=== PATIENT | female | born 1940 | race African-American/Black ===

== ENCOUNTER 2017-12-27 10:17 | Inpatient (IN) | payer MEDICAID, MEDICARE ==
[2017-12-27] MEDS ORDERED: methylPREDNISolone 125 MG* 2 ML VIAL IV ONE (10:19)
[2017-12-27] MEDS ORDERED: Albuterol/Ipratropium NEB.SOL* Albuterol 2.5 MG/Ipratropium 0.5 MG 3 ML INH ONE (10:19)
[2017-12-27] MEDS ORDERED: Albuterol 2.5 MG/3 ML NEB.SOL* (0.083%) INH ONE (10:20)
[2017-12-27] MEDS ORDERED: Albuterol 2.5 MG/3 ML NEB.SOL* (0.083%) ONE (10:21)
--- NOTE | 2017-12-27 11:14 | RAD ---
INDICATION: Shortness of breath. COMPARISON: There are no prior studies available for comparison. TECHNIQUE: A portable view of the chest was obtained. FINDINGS: The heart is within normal limits in size. The lungs are hyperinflated and grossly clear. No pleural effusion is seen. IMPRESSION: NO EVIDENCE FOR ACUTE FINDING.
[2017-12-27 11:55] LABS: EGFR Non-African American 71.2 (>60)
[2017-12-27 12:00] LABS: Urine Appearance Clear; Urine Blood Negative (Negative); Urine Color Yellow; Urine Ketones Negative (Negative); Urine Protein Negative (Negative); Urine Specific Gravity 1.008 (1.010-1.030); Urine Urobilinogen Negative (Negative)
[2017-12-27 12:28] LABS: ABS Basophils 0 10^3/ul (0-0.2); ABS Eosinophils 0 10^3/ul (0-0.6); ABS Lymphocytes 0.3 10^3/ul (1.0-4.8); ABS Monocytes 0.4 10^3/ul (0-0.8); ABS Neutrophils 10.7 10^3/ul (1.5-7.7); ABS Nucleated RBC 0 10^3/ul; Eosinophil % 0.3 % (0-6); Hematocrit 35 % (35-47); Hemoglobin 11.1 g/dl (12.0-16.0); Lymphocyte % 2.9 % (25-47); Mean Corpuscular HGB Conc 32 g/dl (31-36); Mean Corpuscular Hemoglobin 25 pg (27-31); Mean Corpuscular Volume 80 fL (80-97); Mean Platelet Volume 6.7 um3 (7.4-10.4); Nucleated Red Blood Cells % 0; Platelet Count 261 10^3/ul (150-450); Red Cell Distribution Width 18 % (10.5-15); White Blood Count 11.5 10^3/ul (3.5-10.8)
[2017-12-27] MEDS ORDERED: Albuterol/Ipratropium NEB.SOL* Albuterol 2.5 MG/Ipratropium 0.5 MG 3 ML INH PRN (13:32)
[2017-12-27] MEDS ORDERED: Albuterol HFA INHALER* 8 gm MDI INH PRN (13:35)
[2017-12-27] MEDS ORDERED: NS 0.9% 1000 ML* 1,000 ML IV SCH (13:45)
[2017-12-27] MEDS: Heparin VIAL(*) 5000 UNITS/ML VIAL (FIVE THOUSAND) SUBCUT SCH ×2 (14:45→20:42)
[2017-12-27] MEDS ORDERED: Albuterol 2.5 MG/3 ML NEB.SOL* (0.083%) INH PRN (16:40)
[2017-12-27] MEDS ORDERED: Albuterol/Ipratropium NEB.SOL* Albuterol 2.5 MG/Ipratropium 0.5 MG 3 ML INH SCH (17:00)
[2017-12-27] MEDS: methylPREDNISolone SOD 40 MG* 1 ML VIAL IV SCH (18:11)
[2017-12-27] MEDS ORDERED: Albuterol 2.5 MG/3 ML NEB.SOL* (0.083%) INH SCH (19:00)
[2017-12-27] MEDS: Albuterol/Ipratropium NEB.SOL* Albuterol 2.5 MG/Ipratropium 0.5 MG 3 ML INH SCH (19:29)
--- NOTE | 2017-12-27 20:31 | HP ---
CC: Dr. Faria; Dr. Lind * HISTORY AND PHYSICAL: DATE OF ADMISSION: 12/27/17 PRIMARY CARE PROVIDER: Dr. Faria from [facility]. CHIEF COMPLAINT: Shortness of breath and wheezing. HISTORY OF PRESENT ILLNESS: Michael Sanon is a 77-year-old female with history of oxygen-dependent COPD who moved in from [place] to live with her son in [place], [place], last fall. For the past 6 months as per the patient's son, she had been hospitalized almost every 2 weeks at a hospital in [place]. In fact , she was there just a week ago. She was treated for COPD exacerbation with antibiotics and prednisone. At that point, she was recommended to see a mounter sousaphones, Dr. Lind, who is affiliated with out [facility]. The patient stated that she started wheezing again after a brief period of improvement after hospital stay. At that point, the son decided to drive her to our hospital since a mounter sousaphones is in this hospital available. The patient stated that she is not really more short of breath but she had been wheezing more. She had been using nebulizers on an as needed basis. She denies any fevers and she had been having occasional sputum production. Her weight has been unchanged. The patient is going to be placed on observation with the diagnosis of COPD exacerbation. PAST MEDICAL HISTORY: 1. History of COPD, oxygen dependent at 2 L for the past 8 years. The patient denies any surgical interventions in the past. She has no history of heart disease or diabetes. 2. The patient has history of umbilical hernia that "never bothered her." CURRENT MEDICATIONS: At home include: 1. [place]-3 fatty acids at 1000 mg daily. 2. Singulair 10 mg daily. 3. Lisinopril 10 mg daily. 4. Mucinex 600 mg b.i.d. 5. Gabapentin 600 mg at bedtime. 6. Fluticasone nasal spray 1 puff inhalation daily. 7. Ferrous sulfate 325 mg b.i.d. 8. BuSpar 10 mg at bedtime. 9. Ascorbic acid 500 mg daily. 10. DuoNeb 1 nebulizer every 6 hours p.r.n. 11. Albuterol inhaler on p.r.n. basis. ALLERGIES: Include OXYCODONE and PENICILLIN with unknown reaction. Simply the patient does not remember. FAMILY HISTORY: Both parents in their 60s and 70s from a cancer, the patient does not know which cancer. SOCIAL HISTORY: The patient has history of [id number] smoking. She quit smoking 8 years ago. She denies any alcohol or drug use. She is currently retired, lives with her son who is her surrogate. Her son's name is Denny Sanon. REVIEW OF SYSTEMS: Please see history of present illness. All the remaining 12 systems were reviewed with the patient who is rather a poor historian with the help of her son, who is present in the room and were otherwise negative. PHYSICAL EXAMINATION GENERAL: The patient is a very pleasant 77-year-old female, who is in no acute distress; alert, awake, and oriented x3. Rather poor historian. VITAL SIGNS: Blood pressure of 153/66, heart rate of 111 and regular, respiratory rate 20, oxygen saturation 100% on 2 L of oxygen via nasal canula, temperature 98.3. HEENT: Head atraumatic, normocephalic. Eyes, pupils are equal, reactive to light and accommodation. Oropharynx clear. Mucosa moist. Dentition absent. NECK: Supple. No JVD. No bruits bilaterally. RESPIRATORY: Diffuse wheezes in bilateral mid lungs. CARDIOVASCULAR: Regular rate and rhythm. No murmur. ABDOMEN: Soft, nontender. Bowel sounds present in all 4 quadrants. EXTREMITIES: There is no edema. Pulses are +2 bilaterally. No clubbing or cyanosis. NEUROLOGIC: Speech clear. Cranial nerves II through XII grossly intact. Motor strength is 5/5 bilaterally. SKIN: No ecchymotic areas or rashes noted. PSYCHIATRIC: The patient is a rather poor historian but pleasant and cooperative with evaluation with no evidence of anxiety or depression. DIAGNOSTIC STUDIES/LAB DATA: Laboratory data showed white blood cell count of 11.5, hemoglobin of 11.1, hematocrit 35, and platelets 261,000. The patient's MCV was 80. ABG on current oxygen source; pH is 7.43, PCO2 of 48, PO2 of 64, and bicarb of 30. Sodium is 143, potassium 4.1, chloride 103, carbon dioxide 35, BUN 8, creatinine 0.7. Liver function tests unremarkable. C-reactive protein of 77. Procalcitonin 0.1. Urinalysis positive for +3 esterase, but absent bacteria. Portable chest x-ray. Impression: "No evidence of acute finding." The patient's EKG showed sinus tachycardia with no ST changes. ASSESSMENT AND PLAN: 1. The patient appears to be a rather compensated severe chronic obstructive pulmonary disease. Her oxygen saturation is 97% to 100% on 2 L of oxygen via nasal cannula which is her baseline. She is wheezing and she is improved with nebulizer treatments in the hospital. She may be a candidate for chronic prednisone use. At this point, I will observe her on medical floor and ask Dr. Lind to see the patient in consult. I will place her on Solu-Medrol intravenously and continue her nebulizer treatments. 2. The patient has chronic hypoxemic respiratory failure which appears to be at baseline according to the patient's ABG. 3. For DVT prophylaxis, the patient is going to be placed on heparin subcutaneously. 4. The patient's code status is full and that was confirmed by the patient's son who is her surrogate. TIME SPENT: Approximately 35 minutes were spent on the admission of this patient, more than half that time was spent [id number] with the patient during the interview and physical exam. [id number]/[facility] #: [id number] MTDD
[2017-12-27] MEDS: Gabapentin CAP(*) 300 MG PO SCH (20:38)
[2017-12-27] MEDS: Montelukast Sodium TAB* 10 MG PO SCH (20:40)
[2017-12-27] MEDS: Ferrous Sulfate TAB* 325 MG PO SCH (20:40)
[2017-12-27] MEDS: busPIRone TAB* 10 MG PO SCH (20:41)
[2017-12-27] MEDS: guaiFENesin ER TAB 600 MG PO SCH (20:41)
[2017-12-27] MEDS: Acetaminophen TAB* 325 MG PO PRN (22:42)
[2017-12-28] MEDS: Albuterol/Ipratropium NEB.SOL* Albuterol 2.5 MG/Ipratropium 0.5 MG 3 ML INH SCH ×5 (01:53→19:28)
[2017-12-28] MEDS: methylPREDNISolone SOD 40 MG* 1 ML VIAL IV SCH ×3 (02:31→17:57)
[2017-12-28] MEDS: Heparin VIAL(*) 5000 UNITS/ML VIAL (FIVE THOUSAND) SUBCUT SCH ×3 (05:15→22:01)
--- NOTE | 2017-12-28 05:46 | CONS ---
PULMONARY CONSULTATION REPORT: DATE OF CONSULTATION: 12/27/17 - ROOM #ICU-07 CONSULTATION REQUESTED BY: Estelita Kaplan MD REASON FOR CONSULTATION: Evaluation of COPD. HISTORY OF PRESENT ILLNESS: The patient is a 77-year-old female, former smoker , quit 8 years ago with history of asthma/COPD, and history of recurrent COPD exacerbation. The presents for evaluation of worsening shortness of breath, wheezing for the past 1 day. The patient denies sick contacts recently. The patient reports chronic shortness of breath and intermittent cough. The patient reports worsening shortness of breath and wheezing since yesterday. She used her nebulizers without improvement in her symptoms. She was evaluated by home health aide and was recommended to be taken to the emergency room. The patient has a slipcover cutter in [place], was hospitalized in the past in [place]. The patient decided to come in here at this time. The patient has significant COPD, has been on O2 supplementation on 2 L at home. The patient reports improvement in symptoms with nebulizer; however, shortness of breath comes back again. The patient was found to be tachycardic and tachypneic in the ED. She was needing O2 at baseline, has not required increased O2 supplementation. The patient received nebulizers and steroids in the ED. She was admitted for management of COPD exacerbation. The patient is seen and examined at bedside. The patient reports slight improvement in shortness of breath. The patient reports stable cough. The patient denies fevers or chills at home. The patient denies chest pain, palpitations, dizziness, loss of weight or appetite. The patient is tachypneic while talking. She has mild use of accessory muscles of respiration. The patient does not have elevated JVD. The patient had further evaluation in the emergency room, which included blood gas and CT of the chest. I have personally reviewed the lab results and also reviewed the chest x-ray personally. Chest x-ray showed evidence of hyperinflation. Costophrenic angles are short. Evidence of possible pulmonary hypertension. No suspicious air space opacities were noted. The patient was noted to have slightly elevated white count with neutrophilia. The patient noted to have compensated respiratory acidosis with evidence of metabolic alkalosis. Lactic acid was within normal limits. CRP is mildly elevated. BNP is within normal limits. Procalcitonin is within normal limits. The patient was initiated on bronchodilators, Solu-Medrol. PAST MEDICAL HISTORY: 1. COPD/asthma. 2. Recurrent bronchitis. 3. Chronic pain. 4. Hypertension. 5. Allergies. PAST SURGICAL HISTORY: Reviewed. ALLERGIES: OXYCODONE, PENICILLINS. FAMILY HISTORY: Reviewed and noncontributory to current complaint. SOCIAL HISTORY: Former smoker, quit smoking 8 years ago, denies alcohol or drug abuse. PHYSICAL EXAM: The patient in bed, in no apparent distress. Vital Signs: Temperature 98.2, pulse 108 beats per minute, respiratory rate 23 per minute, O2 sat 100% on 3 L, blood pressure of 140/63. HEENT: Pupils are equal and reactive to light. Mucous membranes are moist. Lungs: Diminished air entry bilaterally, scattered wheeze on auscultation. Cardiovascular: S1, S2 present and regular. No murmurs, gallops, or rubs. Abdomen: Soft, nontender, and nondistended. Bowel sounds are present. Extremities: Normal range of motion. Skin: No rashes or bruise. Neuro: No focal deficits. DIAGNOSTIC STUDIES/LAB DATA: WBC count 11.5, hemoglobin 11.1, hematocrit 35, platelet count 261,000. Blood gas analysis shows pH 7.43, pCO2 of 48, pO2 of 64 , bicarb 30, O2 sat 96.9. Sodium 143, potassium 4.1, chloride 103, bicarb 35, BUN 8, creatinine 0.78. Lactic acid is within normal limits. UA showed 3+ leukocyte esterase, 2+ wbc's. Chest x-ray as described above in the HPI. IMPRESSION AND RECOMMENDATIONS: 77-year-old female, former smoker with history of chronic obstructive pulmonary disease, being followed by slipcover cutter at the outside facility, admitted with worsening shortness of breath, wheezing, being treated for acute chronic obstructive pulmonary disease exacerbation. The patient reports improvement in symptoms. The patient reports recurrent symptoms recently, reports allergies are being stable. Reports significantly decreased exercise tolerance at baseline. Has been compliant with O2 as prescribed. No evidence of heart failure at this time. Agree with current management for chronic obstructive pulmonary disease exacerbation with steroids and bronchodilators. The patient does have positive UA, might benefit from antibiotics given the elevated white count. She will benefit from pulmonary rehab as outpatient and chronic prednisone therapy given recurrent exacerbation. Thank you for allowing me to participate in the care of your patient. Will follow up with you. [id number]/[facility] #: [id number] ESTEFANIA
[2017-12-28] MEDS ORDERED: LORazepam INJ* 2 MG/ML 1 ML VIAL IV PUSH ONE (06:29)
--- NOTE | 2017-12-28 06:37 | PN ---
Hospitalist Progress Note Date of Service: 12/28/17 Called to bedside at 610 this am for complaints of sob and increased work of breathing. Pt noted to have wheezing bilaterally. And noted to be diaphoretic. Neb helped somewhat however given WOB will transfer to [facility] for vapotherm possibly bipap. Will give .25 mg ativan. family updated. EKg and cxr ordered
[2017-12-28 06:46] LABS: ABS Basophils 0 10^3/ul (0-0.2); ABS Eosinophils 0 10^3/ul (0-0.6); ABS Lymphocytes 0.4 10^3/ul (1.0-4.8); ABS Monocytes 0.1 10^3/ul (0-0.8); ABS Neutrophils 4.7 10^3/ul (1.5-7.7); ABS Nucleated RBC 0 10^3/ul; Eosinophil % 0 % (0-6); Hematocrit 37 % (35-47); Mean Corpuscular HGB Conc 33 g/dl (31-36); Mean Corpuscular Hemoglobin 26 pg (27-31); Mean Corpuscular Volume 80 fL (80-97); Mean Platelet Volume 7.4 um3 (7.4-10.4); Nucleated Red Blood Cells % 0.1; Platelet Count 314 10^3/ul (150-450); Red Blood Count 4.59 10^6/ul (4.0-5.4); Red Cell Distribution Width 18 % (10.5-15); White Blood Count 5.1 10^3/ul (3.5-10.8)
[2017-12-28] MEDS ORDERED: Furosemide IV* 10 MG/ML 2 ML VIAL (20 MG) IV ONE (06:47)
[2017-12-28] MEDS ORDERED: Furosemide IV* 10 MG/ML 2 ML VIAL (20 MG) ONE (06:54)
[2017-12-28 07:08] LABS: EGFR Non-African American 67.2 (>60)
--- NOTE | 2017-12-28 08:38 | RAD ---
Indication: Shortness of breath. COPD on home oxygen. Cardiovascular disease. Clinical COPD exacerbation. Comparison: December 27, 2017 Technique: Upright AP 0703 hours Report: Elevated lung volumes and both diffuse mild prominence of the interstitial markings and patchy rarefaction of the mid to upper lung zone interstitial markings. Mild alveolar consolidation at the peripheral RIGHT lung base. Given absence of volume loss to favor atelectasis this may represent inflammatory infiltrate. Small RIGHT pleural effusion not excluded. Linear atelectasis at the LEFT mid lung zone is chronic. Negative for pneumothorax. Negative for cardiomegaly. Prominent central pulmonary vasculature with peripheral attenuation. Mildly tortuous thoracic aorta. IMPRESSION: 1. Suggestion of acute inflammatory infiltrate at the RIGHT lung base with potential small pleural effusion. 2. Stigmata of advanced COPD with probable pulmonary arterial hypertension.
[2017-12-28] MEDS: Lisinopril TAB* 10 MG PO SCH (09:01)
[2017-12-28] MEDS: Ferrous Sulfate TAB* 325 MG PO SCH ×2 (09:01→19:49)
[2017-12-28] MEDS: guaiFENesin ER TAB 600 MG PO SCH ×2 (09:01→19:52)
--- NOTE | 2017-12-28 12:14 | PN ---
Progress Note - Progress Note Date of Service: 12/28/17 Note: CRITICAL CARE MEDICINE Date: 12/28/17 Time: 1100 SUBJECTIVE: Patient seen and examined. family at bedside. PHYSICAL EXAM: elderly, frail Vital Signs: Reviewed. Neurologic: awakens, but weak overall, can be appropriate but sleepy HEENT: pupils equal. Sclera anicteric. Trachea midline. Cardiovascular: distant, S1 S2 Respiratory: distant, rate in 20s but tolerable propably towards baseline rate; Abdomen: Soft, nt. Extremities: Warm. mild dep edema Access: piv LABS: Reviewed. IMAGING: Reviewed. MEDICATIONS: Reviewed. ASSESSMENT/PLAN: 77 F Acute on chronic hypoxic and hypercarbic resp failure COPD exacerbation D/w family. pt actually handles fairly well at home with good support, but lungs have been dismal for long time and on home O2. More exacerbations lately. No new burden other then exacerbation it seems at this time. Pulm eval and following. Can wean back off HFO2. [place] will remain poor. Copd adjunctives. Wean O2, steroids. May need flow today. Benefit from nocturnal ventilation? Pt, social work as needed Afeb, wbc dissipated; ua without bact, +sq, asym, can hold off on abx for now Supportive and preventative care as ordered. Disposition: ICU today Code Status: Full presently Critical Care Time: 30min FSamira Jalloh DO
--- NOTE | 2017-12-28 16:23 | PN ---
Progress Note - Progress Note Date of Service: 12/28/17 - Pulm f/u note Note: Pt seen and examined at bedside. Pt reports improvement in breathing. was transferred to ICU this morning, was placed on high flow O2 Active Medications Generic Name Dose Route Start Last Admin Trade Name Aury PRN Reason Stop Dose Admin Acetaminophen 650 mg 12/21/17 09:33 12/27/17 01:47 Tylenol Tab* PO 650 mg Q6H PRN Administration pain/fever Heparin Sodium/Dextrose 25,000 units in 500 mls @ 0 mls/hr 12/27/17 15:00 16:09 Heparin Drip 25,000 Units(*) IV 23 mls/hr PER RATE SHANNEN Administration Protocol Per Protocol Pantoprazole Sodium 80 mg/ 250 mls @ 25 mls/hr 12/27/17 19:00 12/28/17 07:02 Sodium Chloride IVPB 25 mls/hr Q10H SHANNEN Administration Protocol Melatonin 3 mg 12/24/17 01:25 12/26/17 22:22 Melatonin (Nf) PO 3 mg BEDTIME PRN Administration Sleep Protocol Multivitamins/Minerals 1 cap 12/22/17 09:00 12/28/17 09:27 Preservision Areds 2 PO 1 cap BID SHANNEN Administration Potassium Chloride 10 meq 12/25/17 09:00 12/28/17 09:27 Klor Con Er Tab* PO 10 meq DAILY SHANNEN Administration Prochlorperazine Edisylate 5 mg 12/22/17 00:27 12/22/17 00:39 Compazine Inj* IV 5 mg Q6H PRN Administration NAUSEA/VOMITING Sucralfate 1 gm 12/26/17 09:00 12/28/17 12:52 Carafate* PO 1 gm QID SHANNEN Administration Vital Signs Temp Pulse Resp BP Pulse Ox 98 F 79 12 140/78 96 12/28/17 11:40 12/28/17 15:00 12/28/17 15:00 12/28/17 15:00 12/28/17 15:00 O/E: Pt in NAD HEENT: PERRLA, no JVD Lungs: diminished air entry b/l CVS: S1, S2+ Abd: Soft, BS+ Ext: No edema Skin: No rash or bruise Neuro: No focal defecitis Laboratory Results - last 24 hr 12/27/17 12/27/17 12/27/17 05:07 15:54 15:54 WBC RBC Hgb Hct MCV MCH MCHC RDW Plt Count MPV Neut % (Auto) Lymph % (Auto) [place] % (Auto) Eos % (Auto) Baso % (Auto) Absolute Neuts (auto) Absolute Lymphs (auto) Absolute Monos (auto) Absolute Eos (auto) Absolute Basos (auto) Absolute Nucleated RBC Nucleated RBC % APTT 30.7 BUN 14 Creatinine 0.75 Est GFR ( Amer) 94.5 Est GFR (Non-Af Amer) 73.4 Blood Type A Negative Antibody Screen Negative Crossmatch See Detail 12/27/17 12/28/17 12/28/17 23:15 06:30 06:30 WBC 8.3 RBC 3.30 L Hgb 9.9 L Hct 29 L MCV 88 MCH 30 MCHC 34 RDW 16 H Plt Count 209 MPV 7.1 L Neut % (Auto) 78.8 Lymph % (Auto) 10.6 L [place] % (Auto) 8.1 H Eos % (Auto) 1.9 Baso % (Auto) 0.6 Absolute Neuts (auto) 6.6 Absolute Lymphs (auto) 0.9 L Absolute Monos (auto) 0.7 Absolute Eos (auto) 0.2 Absolute Basos (auto) 0.1 Absolute Nucleated RBC 0 Nucleated RBC % 0.1 APTT 102.9 H* 84.2 H BUN Creatinine Est GFR ( Amer) Est GFR (Non-Af Amer) Blood Type Antibody Screen Crossmatch 12/28/17 12/28/17 06:30 14:40 WBC RBC Hgb Hct MCV MCH MCHC RDW Plt Count MPV Neut % (Auto) Lymph % (Auto) [place] % (Auto) Eos % (Auto) Baso % (Auto) Absolute Neuts (auto) Absolute Lymphs (auto) Absolute Monos (auto) Absolute Eos (auto) Absolute Basos (auto) Absolute Nucleated RBC Nucleated RBC % APTT 81.7 H BUN Creatinine 0.64 Est GFR ( Amer) 113.4 Est GFR (Non-Af Amer) 88.2 Blood Type Antibody Screen Crossmatch I/R: 83 y o f former smoker with O2 dependant COPD, recurrent admissions recently a/w worsening SOB, being treated for acute COPD exacerbation Pt has chronic hypercapnic and hypoxic resp failure Given recent recurrent exacerbations and chronic hypercapnia, would benefit from NIPPV Will try BiPAP tonight Will d/c home on BiPAP if able to tolerate Titrate FiO2 as tolerated c/w bronchodilators Will start prednisone taper starting tomorrow Family at bedside, pt and family updated of plan D/w Dr Jalloh
[2017-12-28] MEDS ORDERED: LORazepam INJ* 2 MG/ML 1 ML VIAL ONE (19:46)
[2017-12-28] MEDS: LORazepam INJ* 2 MG/ML 1 ML VIAL IV PRN (19:48)
[2017-12-28] MEDS: busPIRone TAB* 10 MG PO SCH (19:49)
[2017-12-28] MEDS: Gabapentin CAP(*) 300 MG PO SCH (19:49)
[2017-12-28] MEDS: Montelukast Sodium TAB* 10 MG PO SCH (19:49)
[2017-12-29] MEDS: Albuterol/Ipratropium NEB.SOL* Albuterol 2.5 MG/Ipratropium 0.5 MG 3 ML INH SCH ×4 (01:29→19:46)
[2017-12-29] MEDS: Heparin VIAL(*) 5000 UNITS/ML VIAL (FIVE THOUSAND) SUBCUT SCH ×3 (05:23→22:43)
[2017-12-29] MEDS: guaiFENesin ER TAB 600 MG PO SCH ×2 (08:48→19:43)
[2017-12-29] MEDS: Ferrous Sulfate TAB* 325 MG PO SCH ×2 (08:48→19:41)
[2017-12-29] MEDS: Lisinopril TAB* 10 MG PO SCH (08:48)
[2017-12-29] MEDS: predniSONE TAB* 20 MG PO SCH (08:48)
--- NOTE | 2017-12-29 11:15 | PN ---
Progress Note - Progress Note Date of Service: 12/29/17 Note: CRITICAL CARE MEDICINE Date: 12/29/17 Time: 1015 SUBJECTIVE: Patient seen and examined. son at bedside. PHYSICAL EXAM: Vital Signs: Reviewed. Neurologic: more appropriate and communicating HEENT: pupils equal. Sclera anicteric. Trachea midline. Cardiovascular: distant, S1 S2 Respiratory: better rate and phases. more comfortable. distant Abdomen: Soft, nt. Extremities: Warm. mild dep edema Access: piv LABS: Reviewed. IMAGING: Reviewed. MEDICATIONS: Reviewed. ASSESSMENT/PLAN: 77 F Acute on chronic hypoxic and hypercarbic resp failure COPD exacerbation Did well with bipap overnight. will continue nocturnal and see about outpt needs. on 10 L [place] and can keep weaning towards home O2. Pulm f/u Son and family with understanding of her chronic nature and use of bipap benefits Copd adjunctives. Wean steroids. Pt, social work as needed Supportive and preventative care as ordered. Disposition: ok for floor Code Status: Full presently Critical Care Time: 25min FSamira Jalloh DO
[2017-12-29] MEDS: LORazepam INJ* 2 MG/ML 1 ML VIAL IV PRN (12:14)
[2017-12-29] MEDS ORDERED: methylPREDNISolone SOD 40 MG* 1 ML VIAL IV STA (17:01)
--- NOTE | 2017-12-29 17:07 | PN ---
Progress Note - Progress Note Date of Service: 12/29/17 - Pulm f/u note Note: Pt seen and examined at bedside. Pt reports feeling better. Reports having tolerated BiPAP well last night, slept better. Denies cough, chest pain, urinary complaints Active Medications Generic Name Dose Route Start Last Admin Trade Name Freq PRN Reason Stop Dose Admin Acetaminophen 650 mg 12/27/17 13:32 12/27/17 22:42 Tylenol Tab* PO 650 mg Q4H PRN Administration FEVER/PAIN Albuterol 2 puff 12/27/17 13:35 12/28/17 20:59 Ventolin Hfa Inhaler* INH 2 puff Q2H PRN Administration SOB/WHEEZING Albuterol 2.5 mg 12/27/17 16:40 Ventolin 2.5 Mg/3 Ml Neb.Agueda* INH Q2H PRN SOB/WHEEZING Albuterol/Ipratropium 1 neb 12/27/17 19:00 12/29/17 11:57 Duoneb (Albuterol 2.5 Mg/Ipratropium 0.5 Mg) INH 1 neb 0100,0700,1300,1900 SHANNEN Administration Buspirone HCl 10 mg 12/27/17 21:00 12/28/17 19:49 Buspar Tab* PO 10 mg BEDTIME SHANNEN Administration Ferrous Sulfate 325 mg 12/27/17 21:00 12/29/17 08:48 Ferrous Sulfate Tab* PO 325 mg BID SHANNEN Administration Gabapentin 600 mg 12/27/17 21:00 12/28/17 19:49 Neurontin Cap(*) PO 600 mg BEDTIME SHANNEN Administration Guaifenesin 600 mg 12/27/17 21:00 12/29/17 08:48 Mucinex* PO 600 mg BID SHANNEN Administration Heparin Sodium (Porcine) 5,000 units 12/27/17 14:00 12/29/17 16:01 Heparin Vial(*) SUBCUT 5,000 units Q8HR SHANNEN Administration Lisinopril 10 mg 12/28/17 09:00 12/29/17 08:48 Prinivil Tab* PO 10 mg DAILY SHANNEN Administration Lorazepam 0.25 mg 12/28/17 19:43 12/29/17 12:14 Ativan Inj* IV 0.25 mg Q6H PRN Administration ANXIETY Methylprednisolone Sodium Succinate 40 mg 12/29/17 17:01 Solu-Medrol 40 Mg IV 12/29/17 17:02 DAILY STA Montelukast Sodium 10 mg 12/27/17 21:00 12/28/17 19:49 Singulair Tab* PO 10 mg BEDTIME SHANNEN Administration Prednisone 20 mg 12/29/17 09:00 12/29/17 08:48 Deltasone Tab* PO 20 mg DAILY SHANNEN Administration Vital Signs Temp Pulse Resp BP Pulse Ox 98.1 F 98 22 130/66 100 12/29/17 15:50 12/29/17 15:50 12/29/17 15:50 12/29/17 15:50 12/29/17 15:50 O/E: Pt in NAD, siting up in chair HEENT: PERRLA, No JVD Lungs: Expiratory wheeze and prolonged exhalation CVS: S1, S2+, regular Abd: Soft, BS+ Ext: No edema, normal ROM Neuro: No focal defecits Skin: No rash Laboratory Results 12/27/17 12/27/17 12/27/17 05:07 15:54 15:54 WBC RBC Hgb Hct MCV MCH MCHC RDW Plt Count MPV Neut % (Auto) Lymph % (Auto) [place] % (Auto) Eos % (Auto) Baso % (Auto) Absolute Neuts (auto) Absolute Lymphs (auto) Absolute Monos (auto) Absolute Eos (auto) Absolute Basos (auto) Absolute Nucleated RBC Nucleated RBC % APTT 30.7 BUN 14 Creatinine 0.75 Est GFR ( Amer) 94.5 Est GFR (Non-Af Amer) 73.4 Blood Type A Negative Antibody Screen Negative Crossmatch See Detail 12/27/17 12/28/17 12/28/17 23:15 06:30 06:30 WBC 8.3 RBC 3.30 L Hgb 9.9 L Hct 29 L MCV 88 MCH 30 MCHC 34 RDW 16 H Plt Count 209 MPV 7.1 L Neut % (Auto) 78.8 Lymph % (Auto) 10.6 L [place] % (Auto) 8.1 H Eos % (Auto) 1.9 Baso % (Auto) 0.6 Absolute Neuts (auto) 6.6 Absolute Lymphs (auto) 0.9 L Absolute Monos (auto) 0.7 Absolute Eos (auto) 0.2 Absolute Basos (auto) 0.1 Absolute Nucleated RBC 0 Nucleated RBC % 0.1 APTT 102.9 H* 84.2 H BUN Creatinine Est GFR ( Amer) Est GFR (Non-Af Amer) Blood Type Antibody Screen Crossmatch 12/28/17 12/28/17 06:30 14:40 WBC RBC Hgb Hct MCV MCH MCHC RDW Plt Count MPV Neut % (Auto) Lymph % (Auto) [place] % (Auto) Eos % (Auto) Baso % (Auto) Absolute Neuts (auto) Absolute Lymphs (auto) Absolute Monos (auto) Absolute Eos (auto) Absolute Basos (auto) Absolute Nucleated RBC Nucleated RBC % APTT 81.7 H BUN Creatinine 0.64 Est GFR ( Amer) 113.4 Est GFR (Non-Af Amer) 88.2 Blood Type Antibody Screen Crossmatch I/R: 83 y o f former smoker with O2 dependant COPD, recurrent admissions recently a/w worsening SOB, being treated for acute COPD exacerbation Pt has chronic hypercapnic and hypoxic resp failure Given recent recurrent exacerbations and chronic hypercapnia, NIPPV was initiated which she tolerated well c/w BiPAP at night Will d/c home on BiPAP Titrate FiO2 as tolerated Was slightly more wheezy and rhonchorus today Steroids tapered to 20mg daily Will given additional 40mg today c/w bronchodilators Will benefit from pulm rehab as out pt
[2017-12-29] MEDS: busPIRone TAB* 10 MG PO SCH (19:41)
[2017-12-29] MEDS: Gabapentin CAP(*) 300 MG PO SCH (19:42)
[2017-12-29] MEDS: Montelukast Sodium TAB* 10 MG PO SCH (19:43)
--- NOTE | 2017-12-29 21:21 | ED ---
Tin Bah Angela, scribed for Anderson Avila MD on 12/27/17 at 1030 . Shortness of Breath - HPI Summary HPI Summary: This pt is a 77 y/o female presenting to [facility] via EMS for difficulty breathing today. Pt reports she has had increased shortness of breath. She describes wheezing and cough. Denies chest pain, fever. Per nurse's note, pt had duo neb x3 at home with no relief. Pt is a former smoker (quit 8 years ago). She has hx of COPD. - History of Current Complaint Time Seen by Provider: 12/27/17 10:19 Hx Obtained From: Patient Onset/Duration: Gradual Onset, Still Present Timing: Constant Current Severity: Moderate Dyspnea At: Rest Aggrevating Factors: Nothing Alleviating Factors: Nothing Associated Signs & Symptoms: Cough (Nonproductive), Wheezing - Allergy/Home Medications Allergies/Adverse Reactions: Allergies Allergy/AdvReac Type Severity Reaction Status Date / Time oxycodone [From OxyContin] Allergy See Comment Verified 12/27/17 11:46 Penicillins Allergy Rash Verified 12/27/17 11:46 Home Medications: Home Medications Albuterol 2.5MG/3ML (0.083%)* [Ventolin 2.5 MG/3 ML NEB.KRUPA*] 2.5 mg INH Q6H PRN 12/27/17 [History Confirmed 12/27/17] Albuterol HFA INHALER* [Ventolin HFA Inhaler*] 1 - 2 puff INH Q2H PRN 12/27/17 [ History Confirmed 12/27/17] Albuterol/Ipratropium NEB.KRUPA* [Duoneb (Albuterol 2.5 MG/Ipratropium 0.5 MG)] 1 neb INH QID 12/27/17 [History Confirmed 12/27/17] Ascorbic Acid TAB* [Vitamin C TAB*] 500 mg PO DAILY 12/27/17 [History Confirmed 12/27/17] Ferrous Sulfate TAB* 325 mg PO BID 12/27/17 [History Confirmed 12/27/17] Fluticasone HFA 220 mcg(NF) [Flovent HFA 220 Mcg(NF)] 1 puff INH BID 12/27/17 [ History Confirmed 12/27/17] Gabapentin CAP(*) [Neurontin 300 CAP(*)] 600 mg PO BEDTIME 12/27/17 [History Confirmed 12/27/17] Lisinopril TAB* [Prinivil TAB*] 10 mg PO DAILY 12/27/17 [History Confirmed 12/27] Montelukast Sodium TAB* [Singulair TAB*] 10 mg PO BEDTIME 12/27/17 [History Confirmed 12/27/17] [place]-3 Fatty Acids (Nf) [Fish Oil (NF)] 1,000 mg PO DAILY 12/27/17 [History Confirmed 12/27/17] busPIRone TAB* [Buspar TAB*] 10 mg PO BEDTIME 12/27/17 [History Confirmed ] guaiFENesin ER TAB [Mucinex*] 600 mg PO BID 12/27/17 [History Confirmed 12/27/17 ] PMH/Surg Hx/FS Hx/Imm Hx Endocrine/Hematology History: Denies: Hx Diabetes Respiratory History: Reports: Hx Chronic Obstructive Pulmonary Disease (COPD) Infectious Disease History: No Infectious Disease History: Denies: Traveled Outside the [place] in Last 30 Days - Family History Known Family History: Negative: Cardiac Disease, Hypertension - Social History Alcohol Use: None Substance Use Type: Reports: None Smoking Status (MU): Former Smoker Review of Systems Negative: Fever ENT: Negative Negative: Chest Pain Positive: Shortness Of Breath, Cough Genitourinary: Negative Skin: Negative Neurological: Negative All Other Systems Reviewed And Are Negative: Yes Physical Exam - Summary Physical Exam Summary: VITAL SIGNS: Reviewed. GENERAL: Patient is a well-developed and nourished female who is lying comfortable in the stretcher. HEAD AND FACE: No signs of trauma. No ecchymosis, hematomas or skull depressions. No sinus tenderness. EYES: PERRLA, EOMI x 2, No injected conjunctiva, no nystagmus. EARS: Hearing grossly intact. Ear canals and tympanic membranes are within normal limits. MOUTH: Oropharynx within normal limits. Dry mouth. NECK: Supple, trachea is midline, no adenopathy, no JVD, no carotid bruit, no c- spine tenderness, neck with full ROM. CHEST: Symmetric, no tenderness at palpation LUNGS: Decreased breath sounds bilaterally and wheezing. Crackles in both bases of the lungs. CVS: Regular rate and rhythm, S1 and S2 present, no murmurs or gallops appreciated. ABDOMEN: Soft, non-tender. No signs of distention. No rebound no guarding, and no masses palpated. Bowel sounds are normal. EXTREMITIES: FROM in all major joints, no edema, no cyanosis or clubbing. NEURO: Alert and oriented x 3. No acute neurological deficits. Speech is normal and follows commands. SKIN: Dry and warm Triage Information Reviewed: Yes Vital Signs On Initial Exam: Initial Vitals Temp Pulse Resp BP Pulse Ox 98.3 F 112 28 153/66 96 12/27/17 10:19 12/27/17 10:19 12/27/17 10:19 12/27/17 10:19 12/27/17 10:19 Vital Signs Reviewed: Yes Diagnostics - Vital Signs Vital Signs Temp Pulse Resp BP Pulse Ox 12/27/17 10:19 98.3 F 112 28 153/66 96 - Laboratory Result Diagrams: 12/27/17 11:04 12/27/17 11:04 Lab Statement: Any lab studies that have been ordered have been reviewed, and results considered in the medical decision making process. - Radiology Chest XR Xray Interpretation: No Acute Changes - IMPRESSION: No evidence for acute finding. Dr. Avila has reviewed this radiology report. Radiology Interpretation Completed By: Radiologist - EKG 10:44 Cardiac Rate: Tachycardia - at 106 bpm EKG Rhythm: Sinus Tachycardia EKG Interpretation: No ST elevations. Course/Dx - Course Assessment/Plan: Pt is a 77 y/o female presenting to [facility] via EMS for difficulty breathing today. Pt reports she has had increased shortness of breath. She describes wheezing and cough. Denies chest pain, fever. Per nurse' s note, pt had duo neb x3 at home with no relief. Pt is a former smoker (quit 8 years ago). She has hx of COPD. Test results show WBC of 11.5 with 93% neutrophils but no bands, CRP of 77.3. Urinalysis is contaminated therefore we will send urine cultures. ABG with pH of 7.4, pCO2 of 48, pO2 of 64, O2 saturation is 96, elevated base excess. Chest XR: No evidence for acute finding. The pt was given an additional duoneb since she had already taken 3 but she is still wheezing. She was given solu-Medrol. When I removed the oxygen from the pt she desaturates to 90%, however with 3L of oxygen her saturation is 96-98%. I re-examined the pt and she is still wheezing with decreased breath sounds. Therefore I discussed the case with Dr. Kaplan, hospitalist, who accepted the pt for admission. Pt is hemodynamically stable, alert and oriented x3. - Diagnoses Provider Diagnoses: COPD exacerbation - Physician Notifications Discussed Care of Patient With: Estelita Kaplan Time Discussed With Above Provider: 12:50 Instructed by Provider To: Other - I discussed pt care with Dr. Kaplan, hospitalist, who has agreed to admit the pt. Discharge - Sign-Out/Discharge Documenting (check all that apply): Discharge/Admit/Transfer - Admit - Discharge Plan Condition: Stable Disposition: ADMITTED TO [facility] Referrals: David Faria MD [Primary Care Provider] - The documentation as recorded by the Tin perea Angela accurately reflects the service I personally performed and the decisions made by me, Anderson Avila MD.
[2017-12-30] MEDS: Albuterol/Ipratropium NEB.SOL* Albuterol 2.5 MG/Ipratropium 0.5 MG 3 ML INH SCH ×4 (03:02→19:49)
[2017-12-30] MEDS: Heparin VIAL(*) 5000 UNITS/ML VIAL (FIVE THOUSAND) SUBCUT SCH ×3 (05:54→20:42)
[2017-12-30] MEDS: LORazepam INJ* 2 MG/ML 1 ML VIAL IV PRN ×2 (09:18→15:57)
[2017-12-30] MEDS: Lisinopril TAB* 10 MG PO SCH (09:21)
[2017-12-30] MEDS: Ferrous Sulfate TAB* 325 MG PO SCH ×2 (09:21→20:09)
[2017-12-30] MEDS: predniSONE TAB* 20 MG PO SCH (09:22)
[2017-12-30] MEDS: guaiFENesin ER TAB 600 MG PO SCH ×2 (09:22→20:10)
[2017-12-30] MEDS: Acetaminophen TAB* 325 MG PO PRN (16:02)
--- NOTE | 2017-12-30 18:13 | PN ---
Subjective Date of Service: 12/30/17 Interval History: Pt is feeling well. She denies any SOB or sputum production. She states she walked to the bathroom twice today without much difficulty. Objective Active Medications: Acetaminophen (Tylenol Tab*) 650 mg PO Q4H PRN PRN Reason: FEVER/PAIN Last Admin: 12/30/17 16:02 Dose: 650 mg Albuterol (Ventolin Hfa Inhaler*) 2 puff INH Q2H PRN PRN Reason: SOB/WHEEZING Last Admin: 12/28/17 20:59 Dose: 2 puff Albuterol (Ventolin 2.5 Mg/3 Ml Neb.Agueda*) 2.5 mg INH Q2H PRN PRN Reason: SOB/WHEEZING Albuterol/Ipratropium (Duoneb (Albuterol 2.5 Mg/Ipratropium 0.5 Mg)) 1 neb INH 0100,0700,1300,1900 [facility] Last Admin: 12/30/17 13:06 Dose: 1 neb Buspirone HCl (Buspar Tab*) 10 mg PO BEDTIME [facility] Last Admin: 12/29/17 19:41 Dose: 10 mg Ferrous Sulfate (Ferrous Sulfate Tab*) 325 mg PO BID [facility] Last Admin: 12/30/17 09:21 Dose: 325 mg Gabapentin (Neurontin Cap(*)) 600 mg PO BEDTIME [facility] Last Admin: 12/29/17 19:42 Dose: 600 mg Guaifenesin (Mucinex*) 600 mg PO BID [facility] Last Admin: 12/30/17 09:22 Dose: 600 mg Heparin Sodium (Porcine) (Heparin Vial(*)) 5,000 units SUBCUT Q8HR [facility] Last Admin: 12/30/17 13:28 Dose: 5,000 units Lisinopril (Prinivil Tab*) 10 mg PO DAILY [facility] Last Admin: 12/30/17 09:21 Dose: 10 mg Lorazepam (Ativan Inj*) 0.25 mg IV Q6H PRN PRN Reason: ANXIETY Last Admin: 12/30/17 15:57 Dose: 0.25 mg Montelukast Sodium (Singulair Tab*) 10 mg PO BEDTIME [facility] Last Admin: 12/29/17 19:43 Dose: 10 mg Prednisone (Deltasone Tab*) 20 mg PO DAILY [facility] Last Admin: 12/30/17 09:22 Dose: 20 mg Vital Signs - 8 hr 12/30/17 12/30/17 12/30/17 10:52 11:40 13:07 Temperature 98.2 F Pulse Rate 48 93 Respiratory 24 22 20 Rate Blood Pressure 142/66 (mmHg) O2 Sat by Pulse 91 99 Oximetry 12/30/17 12/30/17 12/30/17 13:34 15:04 15:57 Temperature 98.1 F Pulse Rate 92 97 Respiratory 18 20 Rate Blood Pressure 143/64 (mmHg) O2 Sat by Pulse 99 Oximetry Oxygen Devices in Use Now: Nasal Cannula Appearance: Elderly cachectic female sitting up in a recliner chair, NAD Eyes: No Scleral Icterus Ears/Nose/Mouth/Throat: Mucous Membranes Moist Respiratory: Symmetrical Chest Expansion and Respiratory Effort - diminshed breath sounds in all lung myers, Clear to Auscultation Cardiovascular: RRR, No Edema Abdominal: NL Sounds; No Tenderness; No Distention Extremities: No Clubbing, Cyanosis Skin: No Nodules or Sclerosis Neurological: Alert and Oriented x 3 Result Diagrams: 12/28/17 06:29 12/28/17 06:29 Assess/Plan/Problems-Billing Ms Sanon is a 77 yo F who has a h/o O2 dependent COPD, HTN and anxiety who presented to the ER with c/o SOB and was admitted for a COPD exacerbation. - Patient Problems (1) COPD exacerbation Current Visit: Yes Status: Acute Code(s): J44.1 - CHRONIC OBSTRUCTIVE PULMONARY DISEASE W (ACUTE) EXACERBATION SNOMED Code(s): 251465211 Comment: Sputum grew H parainfluenzae. Will continue prednisone for COPD exacerbation. She appears stable today. Will try to get the patient up walking more tomorrow and if stable she may be able to be discharged home. (2) HTN (hypertension) Current Visit: Yes Status: Acute Code(s): I10 - ESSENTIAL (PRIMARY) HYPERTENSION SNOMED Code(s): 62184827 Comment: BP is under good control. Continue lisinopril 10mg daily. (3) Anxiety Current Visit: Yes Status: Acute Code(s): F41.9 - ANXIETY DISORDER, UNSPECIFIED SNOMED Code(s): 97614483 Comment: Continue buspar and prn ativan. (4) DVT prophylaxis Current Visit: Yes Status: Acute Code(s): IBO2816 - SNOMED Code(s): 216760339 Comment: SQ heparin (5) Full code status Current Visit: Yes Status: Acute Code(s): Z78.9 - OTHER SPECIFIED HEALTH STATUS SNOMED Code(s): 418666845
[2017-12-30] MEDS: Gabapentin CAP(*) 300 MG PO SCH (20:09)
[2017-12-30] MEDS: busPIRone TAB* 10 MG PO SCH (20:10)
[2017-12-30] MEDS: Montelukast Sodium TAB* 10 MG PO SCH (20:41)
[2017-12-31] MEDS: Albuterol/Ipratropium NEB.SOL* Albuterol 2.5 MG/Ipratropium 0.5 MG 3 ML INH SCH ×4 (01:48→19:55)
[2017-12-31] MEDS: Heparin VIAL(*) 5000 UNITS/ML VIAL (FIVE THOUSAND) SUBCUT SCH ×3 (05:44→21:19)
[2017-12-31] MEDS: guaiFENesin ER TAB 600 MG PO SCH ×2 (07:38→21:21)
[2017-12-31] MEDS: predniSONE TAB* 20 MG PO SCH (07:38)
[2017-12-31] MEDS: Ferrous Sulfate TAB* 325 MG PO SCH ×2 (07:38→21:19)
[2017-12-31] MEDS: Lisinopril TAB* 10 MG PO SCH (07:38)
[2017-12-31] MEDS: LORazepam TAB(*) 0.5 MG PO PRN ×2 (10:15→16:15)
--- NOTE | 2017-12-31 18:14 | PN ---
Subjective Date of Service: 12/31/17 Interval History: Patient feels OK. Sleeping in chair, which she does at home. She states she can walk to bathroom w/ walker, but nurse states she is a 1-person assist, pivots to commode. Denies chest pain, SOB, cough. Has home O2 but not BiPAP. Family History: Unchanged from Admission Social History: Unchanged from Admission Past Medical History: Unchanged from Admission Objective Active Medications: Acetaminophen (Tylenol Tab*) 650 mg PO Q4H PRN PRN Reason: FEVER/PAIN Last Admin: 12/30/17 16:02 Dose: 650 mg Albuterol (Ventolin Hfa Inhaler*) 2 puff INH Q2H PRN PRN Reason: SOB/WHEEZING Last Admin: 12/28/17 20:59 Dose: 2 puff Albuterol (Ventolin 2.5 Mg/3 Ml Neb.Agueda*) 2.5 mg INH Q2H PRN PRN Reason: SOB/WHEEZING Albuterol/Ipratropium (Duoneb (Albuterol 2.5 Mg/Ipratropium 0.5 Mg)) 1 neb INH 0100,0700,1300,1900 [facility] Last Admin: 12/31/17 13:50 Dose: 1 neb Buspirone HCl (Buspar Tab*) 10 mg PO BEDTIME [facility] Last Admin: 12/30/17 20:10 Dose: 10 mg Ferrous Sulfate (Ferrous Sulfate Tab*) 325 mg PO BID [facility] Last Admin: 12/31/17 07:38 Dose: 325 mg Gabapentin (Neurontin Cap(*)) 600 mg PO BEDTIME [facility] Last Admin: 12/30/17 20:09 Dose: 600 mg Guaifenesin (Mucinex*) 600 mg PO BID [facility] Last Admin: 12/31/17 07:38 Dose: 600 mg Heparin Sodium (Porcine) (Heparin Vial(*)) 5,000 units SUBCUT Q8HR [facility] Last Admin: 12/31/17 13:17 Dose: 5,000 units Lisinopril (Prinivil Tab*) 10 mg PO DAILY [facility] Last Admin: 12/31/17 07:38 Dose: 10 mg Lorazepam (Ativan Tab(*)) 0.5 mg PO Q6H PRN PRN Reason: ANXIETY Last Admin: 12/31/17 16:15 Dose: 0.5 mg Montelukast Sodium (Singulair Tab*) 10 mg PO BEDTIME [facility] Last Admin: 12/30/17 20:41 Dose: 10 mg Prednisone (Deltasone Tab*) 20 mg PO DAILY [facility] Last Admin: 12/31/17 07:38 Dose: 20 mg Vital Signs - 8 hr 12/31/17 12/31/17 12/31/17 13:55 15:40 15:42 Temperature 36.9 C 36.9 C Pulse Rate 99 78 98 Respiratory 16 18 20 Rate Blood Pressure 126/64 133/68 (mmHg) O2 Sat by Pulse 96 94 98 Oximetry Oxygen Devices in Use Now: Nasal Cannula Appearance: elderly woman, NAD Eyes: No Scleral Icterus Ears/Nose/Mouth/Throat: - - almost edentuless Neck: NL Appearance and Movements; NL JVP Respiratory: Clear to Auscultation, - - diminished throughout Cardiovascular: NL Sounds; No Murmurs; No JVD, RRR Abdominal: NL Sounds; No Tenderness; No Distention Extremities: No Edema Neurological: Alert and Oriented x 3 Lines/Tubes/Other Access: Clean, Dry and Intact Peripheral IV Nutrition: Taking PO's Result Diagrams: 12/28/17 06:29 12/28/17 06:29 Assess/Plan/Problems-Billing Ms Sanon is a 77 yo F who has a h/o O2 dependent COPD, HTN and anxiety who presented to the ER with c/o SOB and was admitted for a COPD exacerbation. - Patient Problems (1) COPD exacerbation Current Visit: Yes Status: Acute Priority: High Code(s): J44.1 - CHRONIC OBSTRUCTIVE PULMONARY DISEASE W (ACUTE) EXACERBATION SNOMED Code(s): 979039349 Comment: -Sputum grew H parainfluenzae, will treat w/ doxycycline -Will continue prednisone for COPD exacerbation. (2) Chronic respiratory failure Current Visit: Yes Status: Acute Priority: High Code(s): J96.10 - CHRONIC RESPIRATORY FAILURE, UNSP W HYPOXIA OR HYPERCAPNIA SNOMED Code(s): 45788475 Comment: -Dr. Lind's note appreciated -Can be discharged home once BiPAP set up for nighttime use -continue O2 supplemental (3) DVT prophylaxis Current Visit: Yes Status: Acute Priority: Low Code(s): VCC2615 - SNOMED Code(s): 388026863 Comment: -SQ heparin Status and Disposition: inpatient, discharge tomorrow in BiPAP set up at home
[2017-12-31] MEDS: Acetaminophen TAB* 325 MG PO PRN (18:27)
[2017-12-31] MEDS: DOXYcycline CAP(*) 100 MG PO SCH (21:19)
[2017-12-31] MEDS: Montelukast Sodium TAB* 10 MG PO SCH (21:20)
[2017-12-31] MEDS: Gabapentin CAP(*) 300 MG PO SCH (21:20)
[2017-12-31] MEDS: busPIRone TAB* 10 MG PO SCH (21:21)
[2018-01-01] MEDS: LORazepam TAB(*) 0.5 MG PO PRN ×3 (00:32→18:03)
[2018-01-01] MEDS: Albuterol/Ipratropium NEB.SOL* Albuterol 2.5 MG/Ipratropium 0.5 MG 3 ML INH SCH ×4 (00:42→19:56)
[2018-01-01] MEDS: Heparin VIAL(*) 5000 UNITS/ML VIAL (FIVE THOUSAND) SUBCUT SCH ×3 (05:55→20:59)
[2018-01-01] MEDS: Ferrous Sulfate TAB* 325 MG PO SCH ×2 (07:11→20:50)
[2018-01-01] MEDS: DOXYcycline CAP(*) 100 MG PO SCH ×2 (07:12→20:49)
[2018-01-01] MEDS: predniSONE TAB* 20 MG PO SCH (07:12)
[2018-01-01] MEDS: Lisinopril TAB* 10 MG PO SCH (07:12)
[2018-01-01] MEDS: guaiFENesin ER TAB 600 MG PO SCH ×2 (07:12→20:49)
--- NOTE | 2018-01-01 12:34 | PN ---
Subjective Date of Service: 01/01/18 Interval History: Patient feels stronger than yesterday. She tolerates BiPAP overnight, says it helps w/ breathing. Has home o2 but BiPAP is new to her. Can walk to BR w/ walker. Family History: Unchanged from Admission Social History: Unchanged from Admission Past Medical History: Unchanged from Admission Objective Active Medications: Acetaminophen (Tylenol Tab*) 650 mg PO Q4H PRN PRN Reason: FEVER/PAIN Last Admin: 12/31/17 18:27 Dose: 650 mg Albuterol (Ventolin Hfa Inhaler*) 2 puff INH Q2H PRN PRN Reason: SOB/WHEEZING Last Admin: 12/28/17 20:59 Dose: 2 puff Albuterol (Ventolin 2.5 Mg/3 Ml Neb.Agueda*) 2.5 mg INH Q2H PRN PRN Reason: SOB/WHEEZING Albuterol/Ipratropium (Duoneb (Albuterol 2.5 Mg/Ipratropium 0.5 Mg)) 1 neb INH 0100,0700,1300,1900 [facility] Last Admin: 01/01/18 07:14 Dose: 1 neb Buspirone HCl (Buspar Tab*) 10 mg PO BEDTIME [facility] Last Admin: 12/31/17 21:21 Dose: 10 mg Doxycycline Hyclate (Vibramycin Cap(*)) 100 mg PO BID [facility] Last Admin: 01/01/18 07:12 Dose: 100 mg Ferrous Sulfate (Ferrous Sulfate Tab*) 325 mg PO BID [facility] Last Admin: 01/01/18 07:11 Dose: 325 mg Gabapentin (Neurontin Cap(*)) 600 mg PO BEDTIME [facility] Last Admin: 12/31/17 21:20 Dose: 600 mg Guaifenesin (Mucinex*) 600 mg PO BID [facility] Last Admin: 01/01/18 07:12 Dose: 600 mg Heparin Sodium (Porcine) (Heparin Vial(*)) 5,000 units SUBCUT Q8HR [facility] Last Admin: 01/01/18 05:55 Dose: 5,000 units Lisinopril (Prinivil Tab*) 10 mg PO DAILY [facility] Last Admin: 01/01/18 07:12 Dose: 10 mg Lorazepam (Ativan Tab(*)) 0.5 mg PO Q6H PRN PRN Reason: ANXIETY Last Admin: 01/01/18 10:49 Dose: 0.5 mg Montelukast Sodium (Singulair Tab*) 10 mg PO BEDTIME [facility] Last Admin: 12/31/17 21:20 Dose: 10 mg Prednisone (Deltasone Tab*) 20 mg PO DAILY [facility] Last Admin: 01/01/18 07:12 Dose: 20 mg Vital Signs - 8 hr 01/01/18 01/01/18 01/01/18 07:26 10:49 11:12 Temperature 36.6 C Pulse Rate 76 Respiratory 18 20 18 Rate Blood Pressure 121/61 (mmHg) O2 Sat by Pulse 100 Oximetry Oxygen Devices in Use Now: Nasal Cannula Appearance: elderly, alert Ears/Nose/Mouth/Throat: Clear Oropharnyx, - - nearly edentuless Neck: Trachea Midline Respiratory: Clear to Auscultation Cardiovascular: NL Sounds; No Murmurs; No JVD, RRR Extremities: No Edema Neurological: Alert and Oriented x 3 Lines/Tubes/Other Access: Clean, Dry and Intact Peripheral IV Nutrition: Taking PO's Result Diagrams: 12/28/17 06:29 12/28/17 06:29 Assess/Plan/Problems-Billing Ms Sanon is a 77 yo F who has a h/o O2 dependent COPD, HTN and anxiety who presented to the ER with c/o SOB and was admitted for a COPD exacerbation. - Patient Problems (1) COPD exacerbation Current Visit: Yes Status: Acute Priority: High Code(s): J44.1 - CHRONIC OBSTRUCTIVE PULMONARY DISEASE W (ACUTE) EXACERBATION SNOMED Code(s): 362333864 Comment: -Sputum grew H parainfluenzae, under treatment w/ doxycycline -Will continue prednisone for COPD exacerbation, taper on discharge (2) Chronic respiratory failure Current Visit: Yes Status: Acute Priority: High Code(s): J96.10 - CHRONIC RESPIRATORY FAILURE, UNSP W HYPOXIA OR HYPERCAPNIA SNOMED Code(s): 36033933 Comment: -Dr. Lind's note appreciated -Can be discharged home once BiPAP set up for nighttime use -will have overnight oximetry study off BiPAP tonight to hopefully qualify for BiPAP (3) DVT prophylaxis Current Visit: Yes Status: Acute Priority: Low Code(s): VDM8912 - SNOMED Code(s): 447945423 Comment: -SQ heparin Status and Disposition: inpatient, discharge tomorrow if BiPAP set up at home
[2018-01-01] MEDS: Gabapentin CAP(*) 300 MG PO SCH (20:46)
[2018-01-01] MEDS: Montelukast Sodium TAB* 10 MG PO SCH (20:50)
[2018-01-01] MEDS: busPIRone TAB* 10 MG PO SCH (20:50)
[2018-01-02] MEDS: Albuterol/Ipratropium NEB.SOL* Albuterol 2.5 MG/Ipratropium 0.5 MG 3 ML INH SCH ×4 (01:09→19:45)
[2018-01-02] MEDS: Heparin VIAL(*) 5000 UNITS/ML VIAL (FIVE THOUSAND) SUBCUT SCH ×3 (05:37→20:35)
[2018-01-02] MEDS: DOXYcycline CAP(*) 100 MG PO SCH ×2 (08:59→20:31)
[2018-01-02] MEDS: guaiFENesin ER TAB 600 MG PO SCH ×2 (08:59→20:30)
[2018-01-02] MEDS: Lisinopril TAB* 10 MG PO SCH (08:59)
[2018-01-02] MEDS: predniSONE TAB* 20 MG PO SCH (08:59)
[2018-01-02] MEDS: Ferrous Sulfate TAB* 325 MG PO SCH ×2 (08:59→20:31)
[2018-01-02] MEDS: LORazepam TAB(*) 0.5 MG PO PRN ×2 (13:06→20:35)
--- NOTE | 2018-01-02 14:51 | PN ---
Subjective Date of Service: 01/02/18 Interval History: HOSPITALIST PROGRESS NOTE Patient seen and examined at bedside. Case reviewed and d/w Leticia Romo RN. She feels better today, states her breathing is closer to her usual. Family History: Unchanged from Admission Social History: Unchanged from Admission Past Medical History: Unchanged from Admission Objective Active Medications: Acetaminophen (Tylenol Tab*) 650 mg PO Q4H PRN PRN Reason: FEVER/PAIN Last Admin: 12/31/17 18:27 Dose: 650 mg Albuterol (Ventolin Hfa Inhaler*) 2 puff INH Q2H PRN PRN Reason: SOB/WHEEZING Last Admin: 12/28/17 20:59 Dose: 2 puff Albuterol (Ventolin 2.5 Mg/3 Ml Neb.Agueda*) 2.5 mg INH Q2H PRN PRN Reason: SOB/WHEEZING Albuterol/Ipratropium (Duoneb (Albuterol 2.5 Mg/Ipratropium 0.5 Mg)) 1 neb INH 0100,0700,1300,1900 [facility] Last Admin: 01/02/18 13:52 Dose: 1 neb Buspirone HCl (Buspar Tab*) 10 mg PO BEDTIME [facility] Last Admin: 01/01/18 20:50 Dose: 10 mg Doxycycline Hyclate (Vibramycin Cap(*)) 100 mg PO BID [facility] Last Admin: 01/02/18 08:59 Dose: 100 mg Ferrous Sulfate (Ferrous Sulfate Tab*) 325 mg PO BID [facility] Last Admin: 01/02/18 08:59 Dose: 325 mg Gabapentin (Neurontin Cap(*)) 600 mg PO BEDTIME [facility] Last Admin: 01/01/18 20:46 Dose: 600 mg Guaifenesin (Mucinex*) 600 mg PO BID [facility] Last Admin: 01/02/18 08:59 Dose: 600 mg Heparin Sodium (Porcine) (Heparin Vial(*)) 5,000 units SUBCUT Q8HR [facility] Last Admin: 01/02/18 14:01 Dose: 5,000 units Lisinopril (Prinivil Tab*) 10 mg PO DAILY [facility] Last Admin: 01/02/18 08:59 Dose: 10 mg Lorazepam (Ativan Tab(*)) 0.5 mg PO Q6H PRN PRN Reason: ANXIETY Last Admin: 01/02/18 13:06 Dose: 0.5 mg Montelukast Sodium (Singulair Tab*) 10 mg PO BEDTIME [facility] Last Admin: 01/01/18 20:50 Dose: 10 mg Prednisone (Deltasone Tab*) 20 mg PO DAILY [facility] Last Admin: 01/02/18 08:59 Dose: 20 mg Vital Signs - 8 hr 01/02/18 01/02/18 01/02/18 07:26 07:41 08:00 Temperature 97.8 F Pulse Rate 81 80 Respiratory 20 20 Rate Blood Pressure 105/57 (mmHg) O2 Sat by Pulse 100 96 Oximetry Oxygen Devices in Use Now: Nasal Cannula - 2 liters Appearance: Elderly lady sitting up in a chair in NAD. Eyes: No Scleral Icterus Ears/Nose/Mouth/Throat: Mucous Membranes Moist Neck: Trachea Midline Respiratory: Symmetrical Chest Expansion and Respiratory Effort, - - BS+ bilaterally diminished with scattered rhonchi Cardiovascular: RRR - Normal S1 and S2 Neurological: Alert and Oriented x 3 Result Diagrams: 12/28/17 06:29 12/28/17 06:29 Assess/Plan/Problems-Billing Assessment: Ms Sanon is a 77 yo F who has a h/o O2 dependent COPD, HTN and anxiety who presented to the ER with c/o SOB and was admitted for a COPD exacerbation. - Patient Problems (1) COPD exacerbation Comment: - Sputum grew H parainfluenzae, under treatment w/ doxycycline. - Continue steroids and bronchodilators. (2) Chronic respiratory failure Comment: - Chronic hypercapnic respiratory failure secondary to COPD. - D/w Dr. Lind - patient qualifies for Trilogy - case repairer making arrangements for Trilogy on discharge. (3) DVT prophylaxis Comment: - SQ heparin. (4) Full code status Status and Disposition: Inpatient, awaiting Trilogy set up for discharge.
[2018-01-02] MEDS: busPIRone TAB* 10 MG PO SCH (20:29)
[2018-01-02] MEDS: Gabapentin CAP(*) 300 MG PO SCH (20:31)
[2018-01-02] MEDS: Acetaminophen TAB* 325 MG PO PRN (20:32)
[2018-01-02] MEDS: Montelukast Sodium TAB* 10 MG PO SCH (20:35)
[2018-01-02] MEDS ORDERED: NS 0.9% 500 ML* 500 ML IV ONE (23:32)
[2018-01-03] MEDS: Albuterol/Ipratropium NEB.SOL* Albuterol 2.5 MG/Ipratropium 0.5 MG 3 ML INH SCH ×3 (01:47→13:22)
[2018-01-03] MEDS: Heparin VIAL(*) 5000 UNITS/ML VIAL (FIVE THOUSAND) SUBCUT SCH (06:11)
[2018-01-03 08:20] VITALS: BP 124/61
[2018-01-03] MEDS: guaiFENesin ER TAB 600 MG PO SCH (08:51)
[2018-01-03] MEDS: Lisinopril TAB* 10 MG PO SCH (08:51)
[2018-01-03] MEDS: Ferrous Sulfate TAB* 325 MG PO SCH (08:51)
[2018-01-03] MEDS: DOXYcycline CAP(*) 100 MG PO SCH (08:51)
[2018-01-03] MEDS: predniSONE TAB* 20 MG PO SCH (08:51)
[2018-01-03] MEDS ORDERED: Lisinopril TAB* 5 MG PO SCH (09:00)
[2018-01-03] MEDS: Acetaminophen TAB* 325 MG PO PRN (12:05)
--- NOTE | 2018-01-04 11:56 | DS ---
CC: Dr. David Faria; Dr. Lind * DATE OF ADMISSION: 12/27/17. DATE OF DISCHARGE: 01/03/18 PRIMARY CARE PROVIDER: Dr. David Faria in [place]. CONSULTING BURNISHER AND BUMPER: Dr. Lind. DISCHARGE DIAGNOSES: 1. Chronic obstructive pulmonary disease exacerbation secondary to bronchitis. 2. Acute on chronic hypercapnic respiratory failure, now requiring Trilogy. SECONDARY DIAGNOSES: 1. Chronic obstructive pulmonary disease, home O2 dependent. 2. Umbilical hernia. MEDICATIONS LIST: 1. Fish oil 1000 mg p.o. daily. 2. Montelukast 10 mg p.o. at bedtime. 3. Guaifenesin 600 mg p.o. b.i.d. 4. Gabapentin 600 mg p.o. at bedtime. 5. Fluticasone 220 mcg 1 puff inhaled b.i.d. 6. Ferrous sulfate 325 mg p.o. b.i.d. 7. Buspirone 10 mg p.o. at bedtime. 8. Vitamin C 500 mg p.o. daily. 9. DuoNeb 1 nebulization 4 times a day. 10. Albuterol HFA 1 to 2 puffs inhaled q. 2 hours p.r.n. shortness of breath. 11. Albuterol 2.5 nebulized q. 6 hours p.r.n. shortness of breath. Medications change: Lisinopril was reduced from 10 to 5 mg p.o. daily due to hypotension. New medication: 1. Prednisone taper as follows: 20 mg p.o. daily for 5 days, then 10 mg for 5 days, 5 mg for 5 days, and stop. 2. Lorazepam 0.5 mg p.o. at bedtime as needed for anxiety/insomnia. 3. Doxycycline 100 mg p.o. b.i.d. for 2 more days. HOSPITAL COURSE: Ms. Sanon is a 77 years old lady with a past medical history as stated above that presented to the emergency room on 12/27/17, with complaints of progressive shortness of breath and wheezing. Of note, the patient had been prior hospitalized in a hospital in [place] and she had been referred to see Dr. Lind as an outpatient, but her symptoms returned and she was brought to our emergency room since pulmonology services were available here. For more details of our presentation, I refer you to her history and physical. In the emergency room, the patient had a chest x-ray that showed no evidence for acute findings. The patient was admitted on the impression of acute COPD exacerbation secondary to bronchitis and was started on antibiotics, steroids, and bronchodilators. She was seen in consultation by Dr. Lind and she agreed with the impression of acute on chronic obstructive pulmonary disease exacerbation. She agreed with management. The patient had worsening of her condition with increased shortness of breath and work of breathing associated with diaphoresis and wheezing. She was transferred to the intensive care unit for high flow oxygen and BiPAP. With the treatment above, the patient had improvement of her symptoms. Her ABG showed hypercapnia with a pH of 7.43 and pCO2 of [address] Lind felt that BiPAP would be beneficial. The patient had an overnight oximetry and with 2 L of oxygen the patient's oxygen saturation was greater than 90% most of the time. She had a very brief episode lasting 12 seconds with an oxygen saturation less than 88. With those numbers, the patient did not quality for BiPAP, but due to her chronic hypercapnic respiratory failure and COPD, she did quality for Trilogy and this is going to be delivered to her home. The plan at this point is for her to have her usual 2 L of oxygen during the day and wear her Trilogy at night. The patient states that she feels back to her baseline at this time and she was thought to be medically stable for discharge today. PHYSICAL EXAMINATION: Vital Signs: Temperature 98.0, heart rate is 86, respiratory rate 17, oxygen saturation 100% on 2 L nasal cannula, blood pressure is 124/61. General: The patient is a pleasant elderly lady, sitting up in a chair, in no acute distress. CVS: Normal S1 and S2. Regular rate and rhythm. Chest: Breath sounds are bilaterally diminished, but no no added sounds. Neuro: She is alert and oriented x3. Able to move all 4 extremities. DIET: Regular diet. ACTIVITIES: As tolerated. DISPOSITION: To home. STATUS IN THE HOSPITAL: Inpatient. Please keep in mind this is a summarized version of this patient's hospital stay. If you need more information, please feel free to call me at [phone] or please obtain the full medical records. TIME SPENT: Approximately 50 minutes was spent to complete this discharge. [id number]/[facility] #: [id number] ESTEFANIA
== END 2018-01-03 12:50 | disposition home health service (06) | DRG 190 ==
LOC: ED 10:17 → MED 14:00 → INTOOBSV 14:00 → OBSVTOIN 14:00 → ICU 12-28 06:50 → INTOOBSV 12-28 11:28 → OBSVTOIN 12-28 11:28 → MED 12-29 15:53
PROVIDERS: ADMIT Internal Medicine; ATTEND Internal Medicine
PROC: 5A09357 Assistance with Respiratory Ventilation, Less than 24 Consecutive Hours, Continuous Positive Airway Pressure (ICD-10-PCS; principal; 2017-12-28)
DX: J44.1 Chronic obstructive pulmonary disease with (acute) exacerbation (principal); J96.22 Acute and chronic respiratory failure with hypercapnia; J96.21 Acute and chronic respiratory failure with hypoxia; E87.2 Acidosis; I10 Essential (primary) hypertension; G89.29 Other chronic pain; R00.0 Tachycardia, unspecified; R74.8 Abnormal levels of other serum enzymes; F41.9 Anxiety disorder, unspecified; K42.9 Umbilical hernia without obstruction or gangrene; J40 Bronchitis, not specified as acute or chronic; Z88.5 Allergy status to narcotic agent; Z88.0 Allergy status to penicillin; Z79.52 Long term (current) use of systemic steroids; Z87.891 Personal history of nicotine dependence; Z99.81 Dependence on supplemental oxygen; Z80.9 Family history of malignant neoplasm, unspecified
CPT/HCPCS: 36415; 71045; 80048; 80053; 81003; 81015; 82550; 82803; 83605; 83880; 84145; 84484; 85025; 86140; 87040; 87070; 87077; 87086; 87205; 87641; 93005; 94640; 94660; 94762; 99283; A9270-GY; G0378; J1644; J1940; J2060; J2920; J2930; J7512

== ENCOUNTER 2019-01-29 15:54 | Emergency (ER) | payer MEDICARE, MEDICAID ==
[2019-01-29] MEDS ORDERED: Albuterol/Ipratropium NEB.SOL* Albuterol 2.5 MG/Ipratropium 0.5 MG 3 ML ONE (16:34)
[2019-01-29] MEDS ORDERED: methylPREDNISolone 125 MG* 2 ML VIAL IM ONE (16:36)
[2019-01-29] MEDS ORDERED: Albuterol/Ipratropium NEB.SOL* Albuterol 2.5 MG/Ipratropium 0.5 MG 3 ML INH ONE (16:36)
--- NOTE | 2019-01-29 16:53 | ED ---
Shortness of Breath - HPI Summary HPI Summary: Patient with history of COPD with multiple admissions for same, home O2 at 2L 24 / complains of worsening shortness of breath 2 days. Also complains of chronic epigastric pain. DuoNeb 4 at home, once with EMS on the way to ED. Patient has Trilogy at home when necessary with no relief today. Denies fever , cough, sore throat, CP, N/V/D, change in urine, change in BM. Medical history COPD, HTN, asthma. Point with pulmonology Dr. Lind tomorrow at 11 AM. - History of Current Complaint Chief Complaint: EDShortnessOfBreath Time Seen by Provider: 01/29/19 16:23 Hx Obtained From: Patient, Family/Watch Case Polisher Onset/Duration: Gradual Onset, Lasting Days Current Severity: Moderate Alleviating Factors: Bronchodilators, Oxygen Associated Signs & Symptoms: Negative - Allergy/Home Medications Allergies/Adverse Reactions: Allergies Allergy/AdvReac Type Severity Reaction Status Date / Time oxycodone [From OxyContin] Allergy See Comment Verified 12/27/17 11:46 Penicillins Allergy Rash Verified 12/27/17 11:46 Home Medications: Home Medications Docusate CAP* [Colace Cap*] 100 mg PO BEDTIME 01/29/19 [History Confirmed ] Ferrous Fumarate 325 mg PO BID 01/29/19 [History Confirmed 01/29/19] LORazepam TAB(*) [Ativan 0.5 MG TAB (*)] 0.5 mg PO BID PRN MDD 1 mg 01/29/19 [ History Confirmed 01/29/19] Lisinopril TAB* [Prinivil TAB 5 MG*] 20 mg PO DAILY 01/29/19 [History Confirmed 01/29/19] amLODIPine TAB* [Norvasc 5 mg TAB*] 2.5 mg PO DAILY 01/29/19 [History Confirmed 01/29/19] predniSONE TAB* [Deltasone 10 MG TAB*] 10 mg PO DAILY 01/29/19 [History Confirmed 01/29/19] PMH/Surg Hx/FS Hx/Imm Hx Endocrine/Hematology History: Denies: Hx Diabetes Cardiovascular History: Reports: Hx Hypertension Respiratory History: Reports: Hx Chronic Obstructive Pulmonary Disease (COPD) Denies: Hx Asthma Musculoskeletal History: Reports: Hx Arthritis - BILATERAL KNEE Sensory History: Reports: Hx Cataracts Denies: Hx Contacts or Glasses, Hx Hearing Aid Opthamlomology History: Reports: Hx Cataracts Denies: Hx Contacts or Glasses Neurological History: Denies: Hx Developmental Delay Psychiatric History: Reports: Hx Anxiety Infectious Disease History: No Infectious Disease History: Denies: Traveled Outside the [place] in Last 30 Days - Family History Known Family History: Negative: Cardiac Disease, Hypertension - Social History Alcohol Use: None Substance Use Type: Reports: None Smoking Status (MU): Former Smoker Review of Systems Constitutional: Negative Eyes: Negative ENT: Negative Cardiovascular: Negative Positive: Shortness Of Breath Positive: Abdominal Pain Genitourinary: Negative Musculoskeletal: Negative Skin: Negative Neurological: Negative Psychological: Normal All Other Systems Reviewed And Are Negative: Yes Physical Exam - Summary Physical Exam Summary: Mild epigastric tenderness. Abdominal exam otherwise unremarkable. Very diminished lung sounds bilaterally. Tachycardic. No peripheral edema. Triage Information Reviewed: Yes Vital Signs On Initial Exam: Initial Vitals Temp Pulse Resp BP Pulse Ox 98.5 F 136 50 88/73 97 01/29/19 16:18 01/29/19 16:18 01/29/19 16:18 01/29/19 16:18 01/29/19 16:18 Vital Signs Reviewed: Yes Appearance: Positive: Well-Appearing Skin: Positive: Warm Head/Face: Positive: Normal Head/Face Inspection Eyes: Positive: Normal ENT: Positive: Normal ENT inspection Neck: Positive: Supple Respiratory/Lung Sounds: Positive: Decreased Breath Sounds Cardiovascular: Positive: Tachycardia Abdomen Description: Positive: Nontender Musculoskeletal: Positive: Normal Neurological: Positive: Normal Psychiatric: Positive: Normal AVPU Assessment: Alert - Chrissy Coma Scale Best Eye Response: 4 - Spontaneous Best Motor Response: 6 - Obeys Commands Best Verbal Response: 5 - Oriented Coma Scale Total: 15 Diagnostics - Vital Signs Vital Signs Temp Pulse Resp BP Pulse Ox 01/29/19 16:42 129 29 100 01/29/19 16:19 114 97 01/29/19 16:18 98.5 F 136 50 88/73 97 - Laboratory Result Diagrams: 01/29/19 16:51 01/29/19 16:51 Lab Statement: Any lab studies that have been ordered have been reviewed, and results considered in the medical decision making process. Course/Dx - Course Course Of Treatment: Patient with history of COPD with multiple admissions for same, home O2 at 2L / complains of worsening shortness of breath 2 days. Also complains of chronic epigastric pain. DuoNeb 4 at home, once with EMS on the way to ED. Patient has Trilogy at home when necessary with no relief today. Denies fever, cough, sore throat, CP, N/V/D, change in urine, change in BM. Medical history COPD, HTN, asthma. Point with pulmonology Dr. Lind tomorrow at 11 AM. Physical exam:Mild epigastric tenderness. Abdominal exam otherwise unremarkable. Very diminished lung sounds bilaterally. Tachycardic. No peripheral edema. Tachycardic, likely secondary to multiple duonebs. O2 sats 89-90% on baseline O2 at 2 L. O2 sats 93-94% at 3L here in the ED. Patient states she feels much better after Vapotherm treatment. Chest x-ray positive for COPD with findings suggestive of pulmonary hypertension. EKG sinus tachycardia. Patient has appointment with her support manager tomorrow at 11 AM. Discuss[address] patient with Dr. Steinberg who agreed boosting patient O2 to 3L and discharging with follow up with pulmonology tomorrow. Patient and family agree with plan. - Diagnoses Provider Diagnoses: COPD exacerbation Discharge - Sign-Out/Discharge Documenting (check all that apply): Patient Departure Patient Received Moderate/Deep Sedation with Procedure: No - Discharge Plan Condition: Stable Disposition: HOME Prescriptions: predniSONE TAB* [Deltasone 20 MG TAB*] 20 mg PO DAILY 5 Days #5 tab Patient Education Materials: COPD (Chronic Obstructive Pulmonary Disease) (ED) Referrals: Giana FLANAGAN,David English [Primary Care Provider] - Additional Instructions: Follow-up with primary care. Return to the ED for any new or worsening symptoms. - Billing Disposition and Condition Condition: STABLE Disposition: Home
[2019-01-29 16:58] LABS: ABS Lymphocytes 0.1 10^3/ul (1.0-4.8); ABS Monocytes 0.1 10^3/ul (0-0.8); ABS Neutrophils 16.3 10^3/ul (1.5-7.7); Hematocrit 40 % (35-47); Hemoglobin 13.1 g/dL (12.0-16.0); Lymphocyte % 0.8 %; Mean Corpuscular HGB Conc 33 g/dL (31-36); Mean Corpuscular Hemoglobin 27 pg (27-31); Mean Corpuscular Volume 84 fL (80-97); Platelet Count 193 10^3/uL (150-450); Red Cell Distribution Width 17 % (10-15); White Blood Count 16.5 10^3/uL (3.5-10.8)
[2019-01-29 17:16] LABS: Albumin 3.5 g/dL (3.2-5.2); Calcium 8.7 mg/dL (8.6-10.3); Total Bilirubin 0.3 mg/dL (0.2-1.0)
[2019-01-29 17:20] LABS: Troponin I 0.01 ng/mL (<0.04)
[2019-01-29 17:22] LABS: Albumin/Globulin Ratio 1.7 (1-3); EGFR African American 64.6 (>60); EGFR Non-African American 53.3 (>60); Globulin 2.1 g/dL (2-4); Total Protein 5.6 g/dL (6.4-8.9)
[2019-01-29] MEDS ORDERED: NS 0.9% 1000 ML** 1,000 ML IV ONE (17:32)
[2019-01-29 18:00] LABS: Potassium 3.9 mmol/L (3.5-5.0)
[2019-01-29 21:22] LABS: Urine Appearance Clear; Urine Bilirubin Negative (Negative); Urine Blood Negative (Negative); Urine Color Yellow; Urine Glucose 2+(150 mg/dL) (Negative); Urine Ketones Negative (Negative); Urine Nitrite Negative (Negative); Urine Protein Negative (Negative); Urine Specific Gravity 1.011 (1.010-1.030); Urine Urobilinogen Negative (Negative)
[2019-01-29 23:33] VITALS: BP 163/116
== END 2019-01-29 23:31 | disposition home or self-care (01) ==
LOC: ED 15:54
DX: J44.1 Chronic obstructive pulmonary disease with (acute) exacerbation (principal); I10 Essential (primary) hypertension; Z99.81 Dependence on supplemental oxygen; Z79.899 Other long term (current) drug therapy; Z87.891 Personal history of nicotine dependence; Z88.5 Allergy status to narcotic agent; Z88.0 Allergy status to penicillin
CPT/HCPCS: 36415; 71045; 80053; 81003; 82803; 83605; 84484; 85025; 93005; 96360; 96372; 99285; A9270-GY; J2930